=== PATIENT | female | born 1940 | race African-American/Black ===

== ENCOUNTER 2016-09-09 08:20 | Inpatient (IN) | payer MEDICARE, MEDICAID ==
[2016-09-09] MEDS ORDERED: Albuterol/Ipratropium Neb 3 ML AERS HHN ONE ×2 (08:30→08:33)
--- NOTE | 2016-09-09 08:31 | ED Physician Chart ---
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 Has associated audible wheezing and use of accessory breathing muscles. History is limited as patient has underlying intellectual disability History provided by EMS and EMS run sheet Allergies:: Allergies Allergy/AdvReac Type Severity Reaction Status Date / Time No Known Allergies Allergy Verified 05/28/16 21:30 Historian:: Patient, EMS Review:: Nurse's Note Reviewed, EMS run form Reviewed, Transfer documents Reviewed Review of Systems - Review of Systems Other: Complete system review otherwise unremarkable except as noted in history of present illness. 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 In moderate respiratory distress HEAD: Head is normocephalic and atraumatic EYES: EOMI. PERRL. No scleral icterus. No conjunctival injection ENT: Moist mucous membranes. NECK: Supple. No masses. Full range of motion RESPIRATORY: Tachypneic with accessory intercostal muscle use. Coarse breath sounds bilaterally with bilateral wheezing. CV: Regular rate and rhythm. No murmurs, rubs, or gallops ABDOMEN: Soft, non-distended, non-tender. No guarding. No rebound. No masses. EXTREMITIES: No deformity. No cyanosis. No edema. SKIN: Warm and dry. No obvious rashes. NEUROLOGIC: Alert and oriented. Face is symmetric. Speech is normal. Moves all extremities equally. Motor and sensory distally intact. Labs/Radiology/EKG Results - Lab Results Results: Lab Results 09/09/16 09/09/16 09/09/16 Range/Units 08:30 08:30 08:30 WBC 11.6 H (4.8-10.8) Th/cmm RBC 5.02 (3.80-5.20) Mil/cmm Hgb 14.2 (11.7-16.1) gm/dL Hct 42.9 (35.0-45.0) % MCV 85.6 (81-100) fl MCH 28.3 (27.0-31.0) pg MCHC Differential 33.1 (28.0-36.0) pg RDW 13.2 (11.5-20.0) % Plt Count 364 (150-400) Th/cmm MPV 7.3 fl Neutrophils % 82.6 H (40.0-80.0) % Lymphocytes % 9.5 L (20.0-50.0) % Monocytes % 6.6 (2.0-10.0) % Eosinophils % 1.3 (0.0-5.0) % Basophils % 0.0 (0.0-2.0) % Specimen Source Sample Site pH (7.35-7.45) pCO2 (35.0-45.0) mmHg pO2 (80.0-100.0) mmHg HCO3 (20.0-26.0) mEq/L Base Excess (-3.0-3.0) mEq/L O2 Saturation (92.0-100.0) % Gm Test Vent Rate Inspired O2 Tidal Volume PEEP Pressure (ins/psv/peep) Critical Value Sodium 134 L (136-145) mEq/L Potassium 3.9 (3.5-5.1) mEq/L Chloride 102 (98-107) mEq/L Carbon Dioxide 28.7 (21.0-31.0) mEq/L Anion Gap 7.2 (7.0-16.0) BUN 13 (7-25) mg/dL Creatinine 0.7 (0.6-1.2) mg/dL Est GFR ( Amer) TNP Est GFR (Non-Af Amer) TNP BUN/Creatinine Ratio 18.6 Glucose 147 H (70-105) mg/dL Whole Bld Lactic Acid 1.69 (0.60-1.99) mmol/L Calcium 9.5 (8.6-10.3) mg/dL Total Bilirubin 0.3 (0.3-1.0) mg/dL AST 29 (13-39) U/L ALT 20 (7-52) U/L Alkaline Phosphatase 129 H (34-104) U/L Troponin I (0.01-0.05) ng/mL B-Natriuretic Peptide (5.0-100.0) pg/mL Total Protein 7.6 (6.0-8.3) gm/dL Albumin 3.9 (3.7-5.3) gm/dL Globulin 3.7 gm/dL Albumin/Globulin Ratio 1.1 (1.0-1.8) Urine Source Urine Color Urine Clarity (CLEAR) Urine pH Ur Specific [place] (1.005-1.030) Urine Protein (NEGATIVE) mg/dL Urine Glucose (UA) (NEGATIVE) mg/dL Urine Ketones (NEGATIVE) mg/dL Urine Blood (NEGATIVE) Urine Nitrate (NEGATIVE) Urine Bilirubin (NEGATIVE) Urine Urobilinogen (0.2 - 1.0) E.U./dL Ur Leukocyte Esterase (NEGATIVE) Urine RBC (0-5) /hpf Urine WBC (0-5) /hpf Ur Epithelial Cells (FEW) /lpf Urine Bacteria (NONE SEEN) /hpf Urine Yeast (NONE SEEN) /hpf 09/09/16 09/09/16 09/09/16 Range/Units 08:30 08:34 09:15 WBC (4.8-10.8) Th/cmm RBC (3.80-5.20) Mil/cmm Hgb (11.7-16.1) gm/dL Hct (35.0-45.0) % MCV (81-100) fl MCH (27.0-31.0) pg MCHC Differential (28.0-36.0) pg RDW (11.5-20.0) % Plt Count (150-400) Th/cmm MPV fl Neutrophils % (40.0-80.0) % Lymphocytes % (20.0-50.0) % Monocytes % (2.0-10.0) % Eosinophils % (0.0-5.0) % Basophils % (0.0-2.0) % Specimen Source Arterial Sample Site Right Radial pH 7.38 (7.35-7.45) pCO2 52.0 H (35.0-45.0) mmHg pO2 192.0 H (80.0-100.0) mmHg HCO3 30.8 H (20.0-26.0) mEq/L Base Excess 4.5 H (-3.0-3.0) mEq/L O2 Saturation 100.0 (92.0-100.0) % Gm Test Positive Vent Rate NA Inspired O2 40 Tidal Volume NA PEEP NA Pressure (ins/psv/peep) NA Critical Value IZHANG Sodium (136-145) mEq/L Potassium (3.5-5.1) mEq/L Chloride (98-107) mEq/L Carbon Dioxide (21.0-31.0) mEq/L Anion Gap (7.0-16.0) BUN (7-25) mg/dL Creatinine (0.6-1.2) mg/dL Est GFR ( Amer) Est GFR (Non-Af Amer) BUN/Creatinine Ratio Glucose (70-105) mg/dL Whole Bld Lactic Acid (0.60-1.99) mmol/L Calcium (8.6-10.3) mg/dL Total Bilirubin (0.3-1.0) mg/dL AST (13-39) U/L ALT (7-52) U/L Alkaline Phosphatase (34-104) U/L Troponin I 0.76 H* (0.01-0.05) ng/mL B-Natriuretic Peptide 233.0 H (5.0-100.0) pg/mL Total Protein (6.0-8.3) gm/dL Albumin (3.7-5.3) gm/dL Globulin gm/dL Albumin/Globulin Ratio (1.0-1.8) Urine Source CATH Urine Color YELLOW Urine Clarity SL. CLOUDY (CLEAR) Urine pH 7.5 Ur Specific [place] 1.025 (1.005-1.030) Urine Protein 30 H (NEGATIVE) mg/dL Urine Glucose (UA) NEGATIVE (NEGATIVE) mg/dL Urine Ketones NEGATIVE (NEGATIVE) mg/dL Urine Blood NEGATIVE (NEGATIVE) Urine Nitrate NEGATIVE (NEGATIVE) Urine Bilirubin NEGATIVE (NEGATIVE) Urine Urobilinogen 0.2 (0.2 - 1.0) E.U./dL Ur Leukocyte Esterase TRACE H (NEGATIVE) Urine RBC 0-2 (0-5) /hpf Urine WBC 6-10 H (0-5) /hpf Ur Epithelial Cells MODERATE (FEW) /lpf Urine Bacteria OCCASIONAL (NONE SEEN) /hpf Urine Yeast FEW H (NONE SEEN) /hpf - Radiology Results Results: Single AP VIEW Portable Chest X-ray was interpreted independently and contemporaneously by Josh Urena MD: No cardiomegaly Normal mediastinum Right-sided pleural effusion with underlying infiltrates No pneumothorax No soft tissue or bony abnormalities - EKG Interpretations Comments:: 12-lead EKG Interpretation by Josh Urena MD: Sinus tachycardia with multiple PACs with ventricular rate of 101 beats per minute Normal axis Normal intervals No acute ST or T wave changes. No obvious STEMI Assessment - Assessment General Assessment: Critical Care Time: 30 minutes Treatments/Evaluations: Close monitoring and treatment of unstable vital signs, cardiorespiratory, and neurologic status, while maintaining tight balance of fluid, respiratory, and cardiac interventions. This time includes discussing the case with the patient and the patient's family. This time does not include all procedures stated elsewhere in this record. This time also includes reviewing old records, labs and radiological studies. This time includes examining and re-examining the patient. Additionally, this time also includes arranging care with admitting and consulting physicians. Excludes all billable procedures: Yes This condition life threatening/high prob of deterioration: Yes ED Septic Shock - . Is Septic Shock (SBP<90, OR Lactate>4 mmol\L) present?: No Reassessment (Disposition) - Reassessment Reassessment:: 36-year-old female underlying CHF round and respiratory distress. Received DuoNeb and Solu-Medrol. Patient stabilized here in the ER. Chest x-ray indicates right pleural effusion and underlying infection. Troponins are also elevated however this is most likely the CHF and some demand ischemia from his tachycardia. Received IV antibiotics. Discussed case with Dr. Foster who will admit the patient for further workup and treatment. Reassessment Condition:: Improved - Diagnosis Diagnosis:: Respiratory distress Pneumonia, right lower lobe CHF exacerbation Hypertension - Patient Disposition Discharge/Transfer:: Acute Care w/in this hosp Admitted to:: Telemetry Admitting Medical Physician:: Jitendra Foster Time:: 09:54 Condition at Disposition:: Stable ED Discharge Plan - Patient Disposition Admit/Discharge/Transfer: Acute Care w/in this hosp
[2016-09-09] MEDS ORDERED: Sodium Chloride 0.9% 1,000 ML IV ONE (08:38)
[2016-09-09] MEDS ORDERED: Piperacillin Sodium/Tazobact 3.375 gm Vial IV ONE (08:48)
[2016-09-09 08:51] LABS: % EOSINOPHILS 1.3 % (0.0-5.0); % LYMPHOCYTES 9.5 % (20.0-50.0); % MONOCYTES 6.6 % (2.0-10.0); % NEUTROPHILS 82.6 % (40.0-80.0); HEMATOCRIT 42.9 % (35.0-45.0); HEMOGLOBIN 14.2 gm/dL (11.7-16.1); MEAN CELL VOLUME 85.6 fl (81-100); MEAN CORPUSCULAR HEMOGLOBIN 28.3 pg (27.0-31.0); MEAN CORPUSCULAR HGB CONC 33.1 pg (28.0-36.0); MEAN PLATELET VOLUME 7.3 fl; NEUTROPHILE ABSOLUTE 9.5 Th/cmm (1.8-8.0); PLATELET COUNT 364 Th/cmm (150-400); RED BLOOD COUNT 5.02 Mil/cmm (3.80-5.20); RED CELL DISTRIBUTION WIDTH 13.2 % (11.5-20.0); WHITE BLOOD COUNT 11.6 Th/cmm (4.8-10.8)
[2016-09-09 08:58] LABS: ABG SOURCE Arterial; ALLEN TEST Positive; BE(B) 4.5 mEq/L (-3.0-3.0); FIO2 40; HCO3 30.8 mEq/L (20.0-26.0); pH 7.38 (7.35-7.45)
[2016-09-09 09:07] LABS: ALB/GLOB RATIO 1.1 (1.0-1.8); ALKALINE PHOSPHATASE 129 U/L (34-104); ANION GAP 7.2 (7.0-16.0); BILIRUBIN,TOTAL 0.3 mg/dL (0.3-1.0); BUN - UREA NITROGEN 13 mg/dL (7-25); BUN/CREATININE RATIO 18.6; CALCIUM SERUM 9.5 mg/dL (8.6-10.3); CARBON DIOXIDE 28.7 mEq/L (21.0-31.0); CHLORIDE 102 mEq/L (98-107); CREATININE - SERUM 0.7 mg/dL (0.6-1.2); GLUCOSE 147 mg/dL (70-105); POTASSIUM SERUM 3.9 mEq/L (3.5-5.1); SGOT 29 U/L (13-39); SGPT/ALT 20 U/L (7-52); SODIUM SERUM 134 mEq/L (136-145)
[2016-09-09 09:25] LABS: TROP I 0.76 ng/mL (0.01-0.05)
[2016-09-09 09:38] LABS: URINE COLOR YELLOW
[2016-09-09 09:39] LABS: URINE BILIRUBIN NEGATIVE (NEGATIVE); URINE BLOOD NEGATIVE (NEGATIVE); URINE GLUCOSE (UA) NEGATIVE (NEGATIVE); URINE KETONE NEGATIVE (NEGATIVE); URINE PH 7.5; URINE PROTEIN 30 mg/dL (NEGATIVE); URINE UROBILINOGEN 0.2 E.U./dL (0.2 - 1.0)
[2016-09-09 09:47] LABS: URINE BACTERIA OCCASIONAL /hpf (NONE SEEN); URINE EPITHELIAL CELLS MODERATE /lpf (FEW); URINE RBC 0-2 /hpf (0-5)
[2016-09-09] MEDS ORDERED: Magnesium Hydroxide (MOM) 30 mL UDC PO PRN (10:25)
[2016-09-09] MEDS ORDERED: Ipratropium Neb 0.5 mg/2.5 mL UD HHN PRN (10:25)
[2016-09-09] MEDS ORDERED: Fleet Enema 135 mL RC PRN (10:25)
[2016-09-09] MEDS ORDERED: Menthol/Zinc Oxide Oint 113gm Tube TP PRN (10:25)
[2016-09-09] MEDS ORDERED: Non-Formulary Item 1 EA (Oxybenzone/Padimate O [Sunscreen Spf8 Lotion] 120 ML) TP PRN (10:25)
[2016-09-09] MEDS ORDERED: Maalox 30 mL Cup PO PRN (10:25)
[2016-09-09] MEDS ORDERED: Albuterol Nebulizer 2.5mg/3mL HHN PRN (10:25)
[2016-09-09] MEDS ORDERED: guaiFENesin 200 MG/10 ML UDC PO PRN ×2 (10:25→12:25)
--- NOTE | 2016-09-09 11:15 | Diagnostic Imaging Report ---
Portable chest x-ray HISTORY: Shortness of breath There is a very poor inspiration. This results in obscuration of the heart margins. No definite focal pulmonary processes are seen. IMPRESSION: 1. Limited exam due to very poor inspiration 2. Allowing for a poor inspiration, no definite acute focal processes are seen.
[2016-09-09] MEDS: Cefepime 1 GM in Sodium Chloride 0.9% 50 ML IV SCH ×2 (11:47→21:06)
--- NOTE | 2016-09-09 12:54 | Internal Medicine Prog Note ---
Internal Medicine Subjective - Subjective Service Date: 09/09/16 ([facility] [id number] ) Internal Medicine Objective - Results Result Diagrams: 09/09/16 08:30 09/09/16 08:30 Recent Labs: Laboratory Last Values WBC 11.6 Th/cmm (4.8-10.8) H 09/09/16 08:30 RBC 5.02 Mil/cmm (3.80-5.20) 09/09/16 08:30 Hgb 14.2 gm/dL (11.7-16.1) 09/09/16 08:30 Hct 42.9 % (35.0-45.0) 09/09/16 08:30 MCV 85.6 fl (81-100) 09/09/16 08:30 MCH 28.3 pg (27.0-31.0) 09/09/16 08:30 MCHC Differential 33.1 pg (28.0-36.0) 09/09/16 08:30 RDW 13.2 % (11.5-20.0) 09/09/16 08:30 Plt Count 364 Th/cmm (150-400) 09/09/16 08:30 MPV 7.3 fl 09/09/16 08:30 Neutrophils % 82.6 % (40.0-80.0) H 09/09/16 08:30 Lymphocytes % 9.5 % (20.0-50.0) L 09/09/16 08:30 Monocytes % 6.6 % (2.0-10.0) 09/09/16 08:30 Eosinophils % 1.3 % (0.0-5.0) 09/09/16 08:30 Basophils % 0.0 % (0.0-2.0) 09/09/16 08:30 Specimen Source Arterial 09/09/16 08:34 Sample Site Right Radial 09/09/16 08:34 pH 7.38 (7.35-7.45) 09/09/16 08:34 pCO2 52.0 mmHg (35.0-45.0) H 09/09/16 08:34 pO2 192.0 mmHg (80.0-100.0) H 09/09/16 08:34 HCO3 30.8 mEq/L (20.0-26.0) H 09/09/16 08:34 Base Excess 4.5 mEq/L (-3.0-3.0) H 09/09/16 08:34 O2 Saturation 100.0 % (92.0-100.0) 09/09/16 08:34 Gm Test Positive 09/09/16 08:34 Vent Rate NA 09/09/16 08:34 Inspired O2 40 09/09/16 08:34 Tidal Volume NA 09/09/16 08:34 PEEP NA 09/09/16 08:34 Pressure (ins/psv/peep) NA 09/09/16 08:34 Critical Value IZHANG 09/09/16 08:34 Sodium 134 mEq/L (136-145) L 09/09/16 08:30 Potassium 3.9 mEq/L (3.5-5.1) 09/09/16 08:30 Chloride 102 mEq/L (98-107) 09/09/16 08:30 Carbon Dioxide 28.7 mEq/L (21.0-31.0) 09/09/16 08:30 Anion Gap 7.2 (7.0-16.0) 09/09/16 08:30 BUN 13 mg/dL (7-25) 09/09/16 08:30 Creatinine 0.7 mg/dL (0.6-1.2) 09/09/16 08:30 Est GFR ( Amer) TNP 09/09/16 08:30 Est GFR (Non-Af Amer) TNP 09/09/16 08:30 BUN/Creatinine Ratio 18.6 09/09/16 08:30 Glucose 147 mg/dL (70-105) H 09/09/16 08:30 Whole Bld Lactic Acid 1.69 mmol/L (0.60-1.99) 09/09/16 08:30 Calcium 9.5 mg/dL (8.6-10.3) 09/09/16 08:30 Total Bilirubin 0.3 mg/dL (0.3-1.0) 09/09/16 08:30 AST 29 U/L (13-39) 09/09/16 08:30 ALT 20 U/L (7-52) 09/09/16 08:30 Alkaline Phosphatase 129 U/L (34-104) H 09/09/16 08:30 Troponin I 0.76 ng/mL (0.01-0.05) H* 09/09/16 08:30 B-Natriuretic Peptide 233.0 pg/mL (5.0-100.0) H 09/09/16 08:30 Total Protein 7.6 gm/dL (6.0-8.3) 09/09/16 08:30 Albumin 3.9 gm/dL (3.7-5.3) 09/09/16 08:30 Globulin 3.7 gm/dL 09/09/16 08:30 Albumin/Globulin Ratio 1.1 (1.0-1.8) 09/09/16 08:30 Urine Source CATH 09/09/16 09:15 Urine Color YELLOW 09/09/16 09:15 Urine Clarity SL. CLOUDY (CLEAR) 09/09/16 09:15 Urine pH 7.5 09/09/16 09:15 Ur Specific [place] 1.025 (1.005-1.030) 09/09/16 09:15 Urine Protein 30 mg/dL (NEGATIVE) H 09/09/16 09:15 Urine Glucose (UA) NEGATIVE mg/dL (NEGATIVE) 09/09/16 09:15 Urine Ketones NEGATIVE mg/dL (NEGATIVE) 09/09/16 09:15 Urine Blood NEGATIVE (NEGATIVE) 09/09/16 09:15 Urine Nitrate NEGATIVE (NEGATIVE) 09/09/16 09:15 Urine Bilirubin NEGATIVE (NEGATIVE) 09/09/16 09:15 Urine Urobilinogen 0.2 E.U./dL (0.2 - 1.0) 09/09/16 09:15 Ur Leukocyte Esterase TRACE (NEGATIVE) H 09/09/16 09:15 Urine RBC 0-2 /hpf (0-5) 09/09/16 09:15 Urine WBC 6-10 /hpf (0-5) H 09/09/16 09:15 Ur Epithelial Cells MODERATE /lpf (FEW) 09/09/16 09:15 Urine Bacteria OCCASIONAL /hpf (NONE SEEN) 09/09/16 09:15 Urine Yeast FEW /hpf (NONE SEEN) H 09/09/16 09:15 - Physical Exam Vitals and I&O: Vital Signs Temp 97.8 F 09/09/16 11:08 Pulse 83 09/09/16 11:08 Resp 17 09/09/16 11:52 BP 112/75 09/09/16 11:08 Pulse Ox 100 09/09/16 11:08 Active Medications: Current Medications Acetaminophen (Tylenol) 650 mg PO Q4HR PRN PRN Reason: PAIN OR FEVER >100.1 R Stop: 11/08/16 10:24 Acetaminophen (Tylenol) 650 mg PO Q4HR PRN PRN Reason: Pain or Fever >101 Stop: 11/08/16 12:24 Al Hydrox/Mg Hydrox/Simethicone (Maalox) 30 ml PO Q6H PRN PRN Reason: GI DISTRESS Stop: 11/08/16 10:24 Albuterol Sulfate (Albuterol 2.5mg/3ml Neb Ud) 2.5 mg HHN QIDRT [facility] Stop: 11/08/16 14:59 Alendronate Sodium (Fosamax) 70 mg PO QSAT@0630 [facility] Stop: 11/13/16 06:29 Amlodipine Besylate (Norvasc) 10 mg PO QAM [facility] Stop: 11/09/16 08:59 Aspirin (Aspirin Chewable) 81 mg PO DAILY [facility] Stop: 11/09/16 08:59 Atenolol (Tenormin) 50 mg PO BID [facility] Stop: 11/08/16 16:59 Bisacodyl (Dulcolax 10 Mg Supp) 10 mg RC DAILY PRN PRN Reason: if MOM not effective Stop: 11/08/16 10:24 Calamine/Phenol (Calmoseptine) 1 appl TP Q4H PRN PRN Reason: INCONTINENCE Stop: 11/08/16 10:24 Calcium/Vitamin D (Oscal W/Vitamin D) 1 tab PO BID [facility] Stop: 11/08/16 16:59 Carbamazepine (Tegretol) 200 mg PO BID EULALIA PRN Reason: Protocol Stop: 11/08/16 16:59 Cholecalciferol (Vitamin D3) 1,000 iu PO DAILY [facility] Stop: 11/09/16 08:59 Enalapril Maleate (Vasotec) 20 mg PO BID [facility] Stop: 11/08/16 16:59 Furosemide (Lasix) 40 mg IVP DAILY [facility] Stop: 11/09/16 08:59 Guaifenesin (Robitussin) 200 mg PO Q4HR PRN PRN Reason: Cough or Congestion Stop: 11/08/16 10:24 Guaifenesin (Robitussin) 100 mg PO Q4H PRN PRN Reason: Cough or Congestion Stop: 11/08/16 12:24 Cefepime HCl 1 gm/ Sodium (Chloride) 50 mls @ 100 mls/hr IV Q12HR [facility] Stop: 11/08/16 10:59 Last Admin: 09/09/16 11:47 Dose: 100 mls/hr Ipratropium [place] (Atrovent Neb 0.5mg/2.5ml) 0.5 mg HHN QIDRT [facility] Stop: 11/08/16 14:59 Magnesium Hydroxide (Milk Of Magnesia) 30 ml PO DAILY PRN PRN Reason: CONSTIPATION Stop: 11/08/16 10:24 Meclizine HCl (Antivert) 25 mg PO DAILY PRN PRN Reason: Nausea / Vomiting Stop: 11/08/16 10:24 Miscellaneous (Lactase [Lactase]) 3,000 unit PO BIDAC [facility] Stop: 11/08/16 16:29 Miscellaneous (Oxybenzone/Padimate O [Sunscreen Spf8 Lotion]) 120 ml TP PRN PRN PRN Reason: SUN EXPOSURE Ondansetron HCl (Zofran) 4 mg IV Q8H PRN PRN Reason: Nausea / Vomiting Stop: 11/08/16 12:24 Potassium Chloride (Klor-Con) 20 meq PO DAILY [facility] Stop: 11/09/16 08:59 Sodium Chloride (Saline Flush) 10 ml IV QSHIFT [facility] Stop: 11/08/16 19:59 Sodium Phosphate (Fleet Enema) 135 ml RC DAILY PRN PRN Reason: if dulcolax not effective Stop: 11/08/16 10:24 - Procedures Procedures: Procedures Procedure Code Date D & C NEC 69.09 01/24/98 DILATION AND CURETTAGE 36664 01/24/98 Internal Medicine Assmt/Plan - Assessment Assessment: PNEUMONIA CONGESTIVE HEART FAILURE EXACERBATION HTN DEMENTIA HYPONATREMIA
--- NOTE | 2016-09-09 13:39 | History & Physical ---
CHIEF COMPLAINT: Shortness of breath. HISTORY OF PRESENT ILLNESS: This is a 76-year-old female who is a resident of [facility] who is brought here to [facility] for 1-day history of shortness of breath associated with respiratory distress and audible wheezes. The patient did not have any fevers or any chills at the half-way. The patient is now admitted to the Med/Surg unit to be evaluated. PAST MEDICAL HISTORY: Hypertension, CHF, CVA, TIA, and dementia, seizures. FAMILY HISTORY: Noncontributory. SOCIAL HISTORY: The patient is a resident of [facility], requiring 24-hour nursing care. PAST SURGICAL HISTORY: Unknown. MEDICATIONS: Albuterol, Atrovent, aspirin, Tenormin, Oscal, vitamin D3, Vasotec, Lasix, lactase, potassium chloride, Norvasc, and Tegretol. REVIEW OF SYSTEMS: Unable to obtain, patient is not interactive. PHYSICAL EXAMINATION: GENERAL: The patient is an elderly female, awake, not interactive, appears chronically ill. VITAL SIGNS: Temperature 97.8, heart rate 83, blood pressure 112/75, respirations 18, O2 sat 100%. HEENT: Head; normocephalic, atraumatic. NECK: Supple. No mass. LUNGS: Scattered rhonchi and wheezes bilaterally. CARDIOVASCULAR: Regular rhythm. ABDOMEN: Soft, nontender, nondistended. LABORATORY DATA: WBC 11.6, H and H 14.2 and 42.9, platelets 364. Per ABG, pH 7.38, CO2 52.0, O2 192.0, HCO ____. Sodium 134, potassium 3.9, chloride 102, carbon dioxide 28.7, BUN 13, creatinine 0.7. Troponin 0.76. BNP of 233. DIAGNOSTICS: The patient had a chest x-ray done and the impression is, no definite acute pulmonary processes. ASSESSMENT: 1. Congestive heart failure exacerbation. 2. Possible pneumonia. 3. Elevated troponin. 4. Hyponatremia. 5. Hypertension and dementia. PLAN: The patient to be admitted to the telemetry unit. The patient will have a consultation with Dr. Robbin Henson. Put the patient on IV antibiotics of Maxipime 1 g IV q. 12. We will monitor the patient's electrolytes level. Seizure precautions will be initiated. We will continue to monitor the patient. [facility]# [id number]
[2016-09-09] MEDS: Ipratropium Neb 0.5 mg/2.5 mL UD HHN SCH ×2 (15:31→19:44)
[2016-09-09] MEDS: Albuterol Nebulizer 2.5mg/3mL HHN SCH ×2 (15:31→19:43)
[2016-09-09] MEDS: Calcium Carb/Vit D 500 mg/200 U Tab PO SCH (16:17)
[2016-09-09] MEDS ORDERED: LACTASE 3000 UNIT PO SCH (16:30)
--- NOTE | 2016-09-09 20:43 | Admit Criteria Form ---
Admit Criteria Forms - Admit Criteria Diagnosis: PULMONARY DISEASE GRG Clinical Indications for Admission to Inpatient Care ( Place 'X' for any and all applicable criteria): Hospital admission is needed for appropriate care of the patient because of ANY ONE of the following(1): [ ]I. Impending or actual respiratory arrest ( Use Respiratory Failure Criteria for severe respiratory disease and long-term mechanical ventilation patients) (4) [ ]II. Severe airflow or ventilation abnormalities (not responsive to emergency and observation care treatment as appropriate) as indicated by ANY ONE of the following(5)(6)(7)(8) : [ ]a) PCO2 > 42 mm Hg (5.6 kPa) and pH < 7.35 (new) [ ]b) Documented PCO2 increase > 5 mm Hg (0.7 kPa) from disease baseline [ ]c) Airflow measurements[A] < 60% of previous best or predicted ( e.g., PEF <300 L/minute) despite intensive emergent treatment[B] [ ]d) Required respiratory treatments that are performable only in acute inpatient setting [X]III. Severe respiratory findings (not responsive to emergency and observation care treatment as appropriate) including ANY ONE of the following(5)(8)(9): [X]a) Respiratory distress as indicated by ALL of the following(5)(10): [X]i) Patient with ANY ONE of the following: [X]1) Dyspnea (difficulty breathing) [ ]2) Abnormal breathing pattern (eg, chest retractions) [ ]3) Tachypnea [ ]4) Other evidence of difficulty breathing [X]ii) Evidence of respiratory compromise indicated by ANY ONE of the following: [ ]1) Hypoxemia [ ]2) Altered mental status [X]3) Other evidence of respiratory compromise (eg, pulmonary edema on chest x-ray) [ ]b) Stridor [ ]c) Gross hemoptysis(11) [ ]d) Acute cyanosis [ ]IV. High-risk pulmonary infection as indicated by ANY ONE of the following( 19)(20)(21)(22): [ ]a) Temperature less than 95 degrees F(35 degrees C) or greater than 103.1 degrees F(39.5 degrees C) [ ]b) Hemodynamic instability that remains after emergency or observation level care (as appropriate) [ ]c) Immunocompromised patient (eg, AIDS, post transplant, neutropenic) [ ]d) History of severe COPD [ ]e) History of severely symptomatic congestive heart failure [ ]f) Other high-risk comorbidity (eg, poorly controlled diabetes, cirrhosis, chronic renal insufficiency) [ ]g) Hypoxemia (new) [ ]h) Outpatient, observation, or recovery facility therapy has failed, is not appropriate, or is not feasible [ ]V. Severe atelectasis or lung collapse(15)(16) [ ]. Tuberculosis requiring inpatient treatment as indicated by ANY ONE of the following(17)(18): [ ]a) New positive acid-fast bacilli sputum smear [ ]b) Positive acid-fast bacilli smear (under current treatment), with ANY ONE of the following: [ ]i) Unexposed household contacts [ ]ii) Infants or immunosuppressed household contacts [ ]iii) Patient unable or unwilling to avoid exposing others [ ]iv) Severe immunocompromised patient (eg, AIDS, post transplant, neutropenic) [ ]VII. Empyema or lung abscess(13)(14) [ ]VIII. Severe pulmonary arterial hypertension or pulmonary vascular disease requiring inpatient care indicated by ANY ONE of the following(24)(25): [ ]a) Initiation or change of vasodilators (IV, subcutaneous, or inhaled) or other vasoactive medications needed [ ]b) IV anticoagulation needed (eg, immediate anticoagulation necessary, alternatives not appropriate) [ ]c) Arterial or pulmonary artery catheter monitoring needed due to infusion or other treatment [ ]IX. Chronic lung disease with severe deterioration (not responsive to emergency and observation care treatment as appropriate) as indicated by ANY ONE of the following (6)(12): [ ]a) SaO2 5% below baseline in patient with chronic hypoxemia [ ]b) New requirement for supplemental oxygen to keep SaO2 at baseline or acceptable level [ ]c) Required supplemental oxygen performable only in acute inpatient setting [ ]d) Severe airflow or ventilation abnormalities [ ]e) Rapid rate of exacerbation onset [ ]f) Previously mobile patient unable to walk between rooms [ ]g) Inability to eat or sleep due to dyspnea [ ]h) Altered mental status [ ]X. Cystic fibrosis with severe deterioration as indicated by ANY ONE of the following(26)(27): [ ]a) Severe exacerbation that does not respond to intensified home therapy [ ]b) Pneumonia [ ]c) Hemoptysis [ ]d) Atelectasis [ ]e) Pneumothorax [ ]f) Respiratory failure [ ]g) Severe exacerbation with patient unable to perform prescribed treatments at home [ ]XI. Severe right heart failure as indicated by ANY ONE of the following(24) (25): [ ]a) Increasing organ failure (eg, liver congestion with significant and worsening or new elevation of transaminases) [ ]b) Anasarca [ ]c) Angina that requires inpatient care (eg, not treatable in emergency or observation level of care) [ ]d) Respiratory distress [ ]e) Syncope [ ]f) SBP < 90 mm Hg (new) [ ]XII. Injury requiring inpatient care (medical) as indicated by ANY ONE of the following(28): [ ]a) Significant inhalation injury (eg, smoke inhalation, other toxic inhalation) (29)(30)(31) [ ]b) Airway obstruction that remains or is unstable after emergency or observation level care(32) [ ]c) Severe pain requiring acute inpatient management [ ]d) Lung contusion [ ]e) Bronchial tree injury [ ]f) Air or fat emboli(33) [ ]g) Other injury not treatable in emergency or observation level care (eg, hemothorax) (34) [ ]XIII. Pulmonary hemorrhage or significant hemoptysis(11)(35)(36) [ ]XIV. Inpatient palliative care needed[C](37)(38)(39)(40) [ ]XV. Complications of lung transplant (eg, rejection, failure, respiratory infection) (23) [ ]XVI. Pulmonary Disease and ANY ONE of the following: [ ]a) General Admission Criteria [ ]b) Pediatric General Admission Criteria The [facility] content [facility] by [facility] has been revised. The portions of the content which have been revised are identified through the use of italic text or in bold, and [facility] has neither reviewed nor approved the modified material. All other unmodified content is copyright [facility]. Please see references footnoted in the original [facility] edition 2016 Admit Criteria Met?: Yes
--- NOTE | 2016-09-09 23:08 | Consultation ---
The patient of Dr. Foster. HISTORY AND PHYSICAL: This is a 76-year-old female patient who is a resident at [facility]. The patient was brought to [facility] with increasing shortness of breath and wheezing. The patient also has a slightly elevated BNP level. PAST MEDICAL HISTORY: Congestive heart failure, CVA, TIA, dementia, seizure disorder, hyponatremia, hypertension, and cardiomyopathy. FAMILY HISTORY: Unremarkable. SOCIAL HISTORY: No history of smoking or alcohol abuse. ALLERGIES: No known allergies. PHYSICAL EXAMINATION: VITAL SIGNS: Blood pressure 130/80, pulse 88, and respirations 28. HEAD: Normocephalic. No lumps or bumps. EYES: Pupils are equal and reactive to light. Fundi show AV nicking, sclerae white, and conjunctivae pink. NECK: Carotid 2+. Normal upstroke. JVD 10 cm above the sternal angle. Thyroid not palpable. Lymph nodes not palpable. CHEST: Shows increased AP diameter. No kyphosis or scoliosis. LUNGS: Bilateral wheezing, rhonchi, and prolonged expiration. HEART: PMI fifth intercostal space with lateral to midclavicular line. S1, S2, S3, S4, systolic murmur, grade 2/6 lower left sternal border without radiation. ABDOMEN: Soft. Liver and spleen not palpable. No organomegaly. Bowel sounds active. NEUROLOGIC: No focal neurological deficit. EXTREMITIES: Peripheral pulses 1+. No pedal edema. CLINICAL IMPRESSION: Congestive heart failure, systolic dysfunction, acute cardiomyopathy, pneumonia, hyponatremia, hypertension, dementia, transient ischemic attack, cerebrovascular accident with late-effect seizure disorder. PLAN: Admit the patient. We will get echocardiogram to evaluate left ventricular function. Continue medication to control congestive heart failure and IV antibiotics. JOB# [id number]
[2016-09-10 08:33] LABS: HEMATOCRIT 41.2 % (35.0-45.0); HEMOGLOBIN 13.4 gm/dL (11.7-16.1); MEAN CELL VOLUME 85.5 fl (81-100); MEAN CORPUSCULAR HEMOGLOBIN 27.7 pg (27.0-31.0); MEAN CORPUSCULAR HGB CONC 32.4 pg (28.0-36.0); MEAN PLATELET VOLUME 7.8 fl; PLATELET COUNT 359 Th/cmm (150-400); RED BLOOD COUNT 4.82 Mil/cmm (3.80-5.20)
[2016-09-10 08:34] LABS: WHITE BLOOD COUNT 5.9 Th/cmm (4.8-10.8)
[2016-09-10] MEDS: Calcium Carb/Vit D 500 mg/200 U Tab PO SCH ×2 (09:09→16:36)
[2016-09-10] MEDS: Potassium Chloride 20 mEq ER Tab PO SCH (09:09)
[2016-09-10] MEDS: Aspirin 81mg Chewable Tab PO SCH (09:10)
[2016-09-10] MEDS: Multivitamin w/ Minerals Tab PO SCH (09:10)
[2016-09-10 09:27] LABS: BAND NEUTROPHILE 3 % (0-10); NEUTROPHILS 60 % (40-80); TOTAL CELLS COUNTED 100
[2016-09-10 09:28] LABS: PLATELET ESTIMATE ADEQUATE (NORMAL); PLATELET MORPHOLOGY NORMAL (NORMAL)
[2016-09-10] MEDS: Cefepime 1 GM in Sodium Chloride 0.9% 50 ML IV SCH ×2 (10:19→21:00)
[2016-09-10] MEDS: Enoxaparin 80 mg/0.8 mL 0.8mL Syr SUBQ SCH ×2 (11:01→22:35)
[2016-09-10 11:05] LABS: ANION GAP 12.1 (7.0-16.0); BUN - UREA NITROGEN 19 mg/dL (7-25); BUN/CREATININE RATIO 31.7; CALCIUM SERUM 9.6 mg/dL (8.6-10.3); CARBON DIOXIDE 30.3 mEq/L (21.0-31.0); CHLORIDE 101 mEq/L (98-107); CREATININE - SERUM 0.6 mg/dL (0.6-1.2); GLUCOSE 142 mg/dL (70-105); POTASSIUM SERUM 3.4 mEq/L (3.5-5.1); SODIUM SERUM 140 mEq/L (136-145)
[2016-09-10] MEDS: Albuterol Nebulizer 2.5mg/3mL HHN SCH ×3 (11:36→18:56)
[2016-09-10] MEDS: Ipratropium Neb 0.5 mg/2.5 mL UD HHN SCH ×3 (11:36→18:56)
--- NOTE | 2016-09-10 11:38 | Internal Medicine Prog Note ---
Internal Medicine Subjective - Subjective Service Date: 09/10/16 (AWAKE, ALERT, AFEBRILE, CHEST CONGESTION IMPROVING. ) Patient seen and examined:: with staff Patient is:: awake Patient Complaints of:: congestion Internal Medicine Objective - Results Result Diagrams: 09/10/16 07:20 09/10/16 10:00 Recent Labs: Laboratory Last Values WBC 5.9 Th/cmm (4.8-10.8) D 09/10/16 07:20 RBC 4.82 Mil/cmm (3.80-5.20) 09/10/16 07:20 Hgb 13.4 gm/dL (11.7-16.1) 09/10/16 07:20 Hct 41.2 % (35.0-45.0) 09/10/16 07:20 MCV 85.5 fl (81-100) 09/10/16 07:20 MCH 27.7 pg (27.0-31.0) 09/10/16 07:20 MCHC Differential 32.4 pg (28.0-36.0) 09/10/16 07:20 RDW 13.0 % (11.5-20.0) 09/10/16 07:20 Plt Count 359 Th/cmm (150-400) 09/10/16 07:20 MPV 7.8 fl 09/10/16 07:20 Neutrophils % 82.6 % (40.0-80.0) H 09/09/16 08:30 Band Neutrophils % 3 % (0-10) 09/10/16 07:20 Lymphocytes % 9.5 % (20.0-50.0) L 09/09/16 08:30 Monocytes % 6.6 % (2.0-10.0) 09/09/16 08:30 Eosinophils % 1.3 % (0.0-5.0) 09/09/16 08:30 Basophils % 0.0 % (0.0-2.0) 09/09/16 08:30 Neutrophils (Manual) 60 % (40-80) 09/10/16 07:20 Lymphocytes 21 % (20-50) 09/10/16 07:20 Monocytes 16 % (2-10) H 09/10/16 07:20 Platelet Estimate ADEQUATE (NORMAL) 09/10/16 07:20 Platelet Morphology NORMAL (NORMAL) 09/10/16 07:20 RBC Morph Micro Appear NORMAL (NORMAL) 09/10/16 07:20 Specimen Source Arterial 09/09/16 08:34 Sample Site Right Radial 09/09/16 08:34 pH 7.38 (7.35-7.45) 09/09/16 08:34 pCO2 52.0 mmHg (35.0-45.0) H 09/09/16 08:34 pO2 192.0 mmHg (80.0-100.0) H 09/09/16 08:34 HCO3 30.8 mEq/L (20.0-26.0) H 09/09/16 08:34 Base Excess 4.5 mEq/L (-3.0-3.0) H 09/09/16 08:34 O2 Saturation 100.0 % (92.0-100.0) 09/09/16 08:34 Gm Test Positive 09/09/16 08:34 Vent Rate NA 09/09/16 08:34 Inspired O2 40 09/09/16 08:34 Tidal Volume NA 09/09/16 08:34 PEEP NA 09/09/16 08:34 Pressure (ins/psv/peep) NA 09/09/16 08:34 Critical Value IZHANG 09/09/16 08:34 Sodium 140 mEq/L (136-145) 09/10/16 10:00 Potassium 3.4 mEq/L (3.5-5.1) L 09/10/16 10:00 Chloride 101 mEq/L (98-107) 09/10/16 10:00 Carbon Dioxide 30.3 mEq/L (21.0-31.0) 09/10/16 10:00 Anion Gap 12.1 (7.0-16.0) 09/10/16 10:00 BUN 19 mg/dL (7-25) 09/10/16 10:00 Creatinine 0.6 mg/dL (0.6-1.2) 09/10/16 10:00 Est GFR ( Amer) TNP 09/10/16 10:00 Est GFR (Non-Af Amer) TNP 09/10/16 10:00 BUN/Creatinine Ratio 31.7 09/10/16 10:00 Glucose 142 mg/dL (70-105) H 09/10/16 10:00 Whole Bld Lactic Acid 1.69 mmol/L (0.60-1.99) 09/09/16 08:30 Calcium 9.6 mg/dL (8.6-10.3) 09/10/16 10:00 Total Bilirubin 0.3 mg/dL (0.3-1.0) 09/09/16 08:30 AST 29 U/L (13-39) 09/09/16 08:30 ALT 20 U/L (7-52) 09/09/16 08:30 Alkaline Phosphatase 129 U/L (34-104) H 09/09/16 08:30 Troponin I 2.31 ng/mL (0.01-0.05) H* D 09/10/16 10:00 B-Natriuretic Peptide 233.0 pg/mL (5.0-100.0) H 09/09/16 08:30 Total Protein 7.6 gm/dL (6.0-8.3) 09/09/16 08:30 Albumin 3.9 gm/dL (3.7-5.3) 09/09/16 08:30 Globulin 3.7 gm/dL 09/09/16 08:30 Albumin/Globulin Ratio 1.1 (1.0-1.8) 09/09/16 08:30 Urine Source CATH 09/09/16 09:15 Urine Color YELLOW 09/09/16 09:15 Urine Clarity SL. CLOUDY (CLEAR) 09/09/16 09:15 Urine pH 7.5 09/09/16 09:15 Ur Specific [place] 1.025 (1.005-1.030) 09/09/16 09:15 Urine Protein 30 mg/dL (NEGATIVE) H 09/09/16 09:15 Urine Glucose (UA) NEGATIVE mg/dL (NEGATIVE) 09/09/16 09:15 Urine Ketones NEGATIVE mg/dL (NEGATIVE) 09/09/16 09:15 Urine Blood NEGATIVE (NEGATIVE) 09/09/16 09:15 Urine Nitrate NEGATIVE (NEGATIVE) 09/09/16 09:15 Urine Bilirubin NEGATIVE (NEGATIVE) 09/09/16 09:15 Urine Urobilinogen 0.2 E.U./dL (0.2 - 1.0) 09/09/16 09:15 Ur Leukocyte Esterase TRACE (NEGATIVE) H 09/09/16 09:15 Urine RBC 0-2 /hpf (0-5) 09/09/16 09:15 Urine WBC 6-10 /hpf (0-5) H 09/09/16 09:15 Ur Epithelial Cells MODERATE /lpf (FEW) 09/09/16 09:15 Urine Bacteria OCCASIONAL /hpf (NONE SEEN) 09/09/16 09:15 Urine Yeast FEW /hpf (NONE SEEN) H 09/09/16 09:15 - Physical Exam Vitals and I&O: Vital Signs Temp 97.6 F 09/10/16 04:00 Pulse 98 09/10/16 09:09 Resp 18 09/10/16 08:00 BP 150/94 09/10/16 09:10 Pulse Ox 97 09/10/16 04:00 Intake & Output 09/09/16 09/10/16 09/10/16 18:59 06:59 18:59 Intake Total 50 150 Output Total 500 Balance 50 -350 Intake: Intake, IV Amount 50 50 Cefepime 1 gm In Sodium 50 50 Chloride 0.9% 50 ml @ 100 mls/hr IV Q12HR [facility] Rx#: [id number] Oral 100 Output: Urine 500 Other: # Bowel Movements 0 Active Medications: Current Medications Acetaminophen (Tylenol) 650 mg PO Q4HR PRN PRN Reason: PAIN OR FEVER >100.1 R Stop: 11/08/16 10:24 Acetaminophen (Tylenol) 650 mg PO Q4HR PRN PRN Reason: Pain or Fever >101 Stop: 11/08/16 12:24 Al Hydrox/Mg Hydrox/Simethicone (Maalox) 30 ml PO Q6H PRN PRN Reason: GI DISTRESS Stop: 11/08/16 10:24 Albuterol Sulfate (Albuterol 2.5mg/3ml Neb Ud) 2.5 mg HHN QIDRT [facility] Stop: 11/08/16 14:59 Last Admin: 09/10/16 11:36 Dose: 2.5 mg Alendronate Sodium (Fosamax) 70 mg PO QSAT@0630 [facility] Stop: 11/13/16 06:29 Amlodipine Besylate (Norvasc) 10 mg PO QAM [facility] Stop: 11/09/16 08:59 Last Admin: 09/10/16 09:08 Dose: 10 mg Aspirin (Aspirin Chewable) 81 mg PO DAILY [facility] Stop: 11/09/16 08:59 Last Admin: 09/10/16 09:10 Dose: 81 mg Atenolol (Tenormin) 50 mg PO BID [facility] Stop: 11/08/16 16:59 Last Admin: 09/10/16 09:09 Dose: 50 mg Bisacodyl (Dulcolax 10 Mg Supp) 10 mg RC DAILY PRN PRN Reason: if MOM not effective Stop: 11/08/16 10:24 Calamine/Phenol (Calmoseptine) 1 appl TP Q4H PRN PRN Reason: INCONTINENCE Stop: 11/08/16 10:24 Calcium/Vitamin D (Oscal W/Vitamin D) 1 tab PO BID [facility] Stop: 11/08/16 16:59 Last Admin: 09/10/16 09:09 Dose: 1 tab Carbamazepine (Tegretol) 200 mg PO BID [facility] PRN Reason: Protocol Stop: 11/08/16 16:59 Last Admin: 09/10/16 09:09 Dose: 200 mg Cholecalciferol (Vitamin D3) 1,000 iu PO DAILY [facility] Stop: 11/09/16 08:59 Last Admin: 09/10/16 09:10 Dose: 1,000 iu Enalapril Maleate (Vasotec) 20 mg PO BID [facility] Stop: 11/08/16 16:59 Last Admin: 09/10/16 09:09 Dose: 20 mg Enoxaparin Sodium (Lovenox) 70 mg SUBQ Q12HR [facility] PRN Reason: Protocol Stop: 11/09/16 10:59 Last Admin: 09/10/16 11:01 Dose: 70 mg Furosemide (Lasix) 40 mg IVP DAILY [facility] Stop: 11/09/16 08:59 Last Admin: 09/10/16 09:10 Dose: 40 mg Guaifenesin (Robitussin) 100 mg PO Q4H PRN PRN Reason: Cough or Congestion Stop: 11/08/16 12:24 Cefepime HCl 1 gm/ Sodium (Chloride) 50 mls @ 100 mls/hr IV Q12HR [facility] Stop: 11/08/16 10:59 Last Admin: 09/10/16 10:19 Dose: 100 mls/hr Ipratropium [place] (Atrovent Neb 0.5mg/2.5ml) 0.5 mg HHN QIDRT [facility] Stop: 11/08/16 14:59 Last Admin: 09/10/16 11:36 Dose: 0.5 mg Magnesium Hydroxide (Milk Of Magnesia) 30 ml PO DAILY PRN PRN Reason: CONSTIPATION Stop: 11/08/16 10:24 Meclizine HCl (Antivert) 25 mg PO DAILY PRN PRN Reason: Nausea / Vomiting Stop: 11/08/16 10:24 Methylprednisolone Sodium Succinate (Solu-Medrol) 80 mg IVP Q12HR [facility] Stop: 11/08/16 20:59 Last Admin: 09/10/16 09:10 Dose: 80 mg Miscellaneous (Lactase [Lactase]) 3,000 unit PO BIDAC [facility] Stop: 11/08/16 16:29 Miscellaneous (Oxybenzone/Padimate O [Sunscreen Spf8 Lotion]) 120 ml TP PRN PRN PRN Reason: SUN EXPOSURE Ondansetron HCl (Zofran) 4 mg IV Q8H PRN PRN Reason: Nausea / Vomiting Stop: 11/08/16 12:24 Potassium Chloride (Klor-Con) 20 meq PO DAILY [facility] Stop: 11/09/16 08:59 Last Admin: 09/10/16 09:09 Dose: 20 meq Sodium Chloride (Saline Flush) 10 ml IV QSHIFT [facility] Stop: 11/08/16 19:59 Sodium Phosphate (Fleet Enema) 135 ml RC DAILY PRN PRN Reason: if dulcolax not effective Stop: 11/08/16 10:24 General: alert HEENT: NC/AT, PERRLA, EOMI Neck: Supple Lungs: CTAB Cardiovascular: RRR, Normal S1, Normal S2, without murmur Abdomen: soft non-tender, non-distended, positive bowel sound Neurological: no change - Procedures Procedures: Procedures Procedure Code Date D & C NEC 69.09 01/24/98 DILATION AND CURETTAGE 34817 01/24/98 Internal Medicine Assmt/Plan - Assessment Assessment: PNEUMONIA CONGESTIVE HEART FAILURE EXACERBATION HTN DEMENTIA HYPONATREMIA - Plan Plan: f/u cxr in am continue ivabx inhalation tx/supplemental oxygen cpm
[2016-09-10] MEDS ORDERED: Potassium Chloride 20 mEq ER Tab PO ONE (11:58)
--- NOTE | 2016-09-10 13:36 | Cardiology ---
Patient of Dr. Jitendra Foster. M-MODE ECHOCARDIOGRAM: Mitral valve, anterior leaflet of mitral valve shows decreased excursion, EF velocity. Posterior leaflet of mitral valve shows decreased excursion. Left ventricular posterior wall shows increased thickness, decreased excursion. Interventricular septum shows increased thickness, decreased excursion, ejection fraction 20%. Left atrium normal. Aortic root shows normal dimension, normal excursion of aortic leaflets. CONCLUSION: Cardiomyopathy, ejection fraction 20%, minimal hypertrophy of the left ventricle. 2D ECHO: Long axis view shows enlarged left ventricular cavity with minimal hypertrophy of the left ventricle, ejection fraction 20%. Left atrium normal. Aortic root shows normal dimension, normal excursion of aortic leaflets. Short axis view of mitral valve normal. Short axis view of aortic valve normal. Apical four chamber view shows enlarged left ventricular cavity with decreased ejection fraction. Left atrium, normal. Right ventricular cavity, right atrium normal, no pericardial effusion. CONCLUSION: Hypertrophy of the left ventricle, cardiomyopathy, ejection fraction 20%. Doppler study shows mild mitral regurgitation, tricuspid regurgitation, aortic regurgitation. [facility]# [id number]
[2016-09-11] MEDS: Albuterol Nebulizer 2.5mg/3mL HHN SCH ×5 (05:14→19:00)
[2016-09-11] MEDS: Ipratropium Neb 0.5 mg/2.5 mL UD HHN SCH ×5 (05:14→19:00)
[2016-09-11 08:12] LABS: % BASOPHILS 0.2 % (0.0-2.0); % EOSINOPHILS 0.2 % (0.0-5.0); % MONOCYTES 13.5 % (2.0-10.0); % NEUTROPHILS 77.1 % (40.0-80.0); HEMATOCRIT 41.8 % (35.0-45.0); HEMOGLOBIN 13.5 gm/dL (11.7-16.1); MEAN CELL VOLUME 85.7 fl (81-100); MEAN CORPUSCULAR HEMOGLOBIN 27.8 pg (27.0-31.0); MEAN CORPUSCULAR HGB CONC 32.4 pg (28.0-36.0); MEAN PLATELET VOLUME 7.6 fl; NEUTROPHILE ABSOLUTE 9.7 Th/cmm (1.8-8.0); PLATELET COUNT 396 Th/cmm (150-400); RED BLOOD COUNT 4.87 Mil/cmm (3.80-5.20); RED CELL DISTRIBUTION WIDTH 13.1 % (11.5-20.0)
[2016-09-11 08:21] LABS: BUN - UREA NITROGEN 29 mg/dL (7-25); BUN/CREATININE RATIO 41.4; CALCIUM SERUM 9.1 mg/dL (8.6-10.3); CARBON DIOXIDE 32.1 mEq/L (21.0-31.0); CHLORIDE 105 mEq/L (98-107); CREATININE - SERUM 0.7 mg/dL (0.6-1.2); GLUCOSE 123 mg/dL (70-105); SODIUM SERUM 138 mEq/L (136-145)
[2016-09-11 08:41] LABS: POTASSIUM SERUM 3.1 mEq/L (3.5-5.1)
[2016-09-11 08:44] LABS: WHITE BLOOD COUNT 12.5 Th/cmm (4.8-10.8)
[2016-09-11 08:45] LABS: TROP I 1.19 ng/mL (0.01-0.05)
[2016-09-11] MEDS: Enoxaparin 80 mg/0.8 mL 0.8mL Syr SUBQ SCH ×2 (09:02→20:39)
[2016-09-11] MEDS: Potassium Chloride 20 mEq ER Tab PO SCH ×2 (09:03→16:57)
[2016-09-11] MEDS: Aspirin 81mg Chewable Tab PO SCH (09:03)
[2016-09-11] MEDS: Cefepime 1 GM in Sodium Chloride 0.9% 50 ML IV SCH ×2 (09:03→20:38)
[2016-09-11] MEDS: Multivitamin w/ Minerals Tab PO SCH (09:04)
[2016-09-11] MEDS: Calcium Carb/Vit D 500 mg/200 U Tab PO SCH ×2 (09:05→16:57)
--- NOTE | 2016-09-11 09:11 | Diagnostic Imaging Report ---
CHEST X-RAY: AP view INDICATION: Pneumonia COMPARISON: 09/09/2016 FINDINGS: Suboptimal lung volumes are seen with increased bibasilar lung markings. Heart size cannot be well assessed due to patient's low lung volumes. Degenerative changes of the spine are noted. IMPRESSION: Suboptimal lung volumes with increased bibasilar lung markings favoring atelectasis. Underlying infiltrate is considered less likely.
[2016-09-11] MEDS ORDERED: KCL 20mEq/100mL Premix 20 MEQ/100 ML PIGGYBACK IV ONE (11:00)
--- NOTE | 2016-09-11 15:17 | Internal Medicine Prog Note ---
Internal Medicine Subjective - Subjective Service Date: 09/11/16 Patient seen and examined:: with staff Patient is:: awake Per staff patient is:: no adverse event Internal Medicine Objective - Results Result Diagrams: 09/11/16 07:40 09/11/16 07:40 Recent Labs: Laboratory Last Values WBC 12.5 Th/cmm (4.8-10.8) H D 09/11/16 07:40 RBC 4.87 Mil/cmm (3.80-5.20) 09/11/16 07:40 Hgb 13.5 gm/dL (11.7-16.1) 09/11/16 07:40 Hct 41.8 % (35.0-45.0) 09/11/16 07:40 MCV 85.7 fl (81-100) 09/11/16 07:40 MCH 27.8 pg (27.0-31.0) 09/11/16 07:40 MCHC Differential 32.4 pg (28.0-36.0) 09/11/16 07:40 RDW 13.1 % (11.5-20.0) 09/11/16 07:40 Plt Count 396 Th/cmm (150-400) 09/11/16 07:40 MPV 7.6 fl 09/11/16 07:40 Neutrophils % 77.1 % (40.0-80.0) 09/11/16 07:40 Band Neutrophils % 3 % (0-10) 09/10/16 07:20 Lymphocytes % 9.0 % (20.0-50.0) L 09/11/16 07:40 Monocytes % 13.5 % (2.0-10.0) H 09/11/16 07:40 Eosinophils % 0.2 % (0.0-5.0) 09/11/16 07:40 Basophils % 0.2 % (0.0-2.0) 09/11/16 07:40 Neutrophils (Manual) 60 % (40-80) 09/10/16 07:20 Lymphocytes 21 % (20-50) 09/10/16 07:20 Monocytes 16 % (2-10) H 09/10/16 07:20 Platelet Estimate ADEQUATE (NORMAL) 09/10/16 07:20 Platelet Morphology NORMAL (NORMAL) 09/10/16 07:20 RBC Morph Micro Appear NORMAL (NORMAL) 09/10/16 07:20 Specimen Source Arterial 09/09/16 08:34 Sample Site Right Radial 09/09/16 08:34 pH 7.38 (7.35-7.45) 09/09/16 08:34 pCO2 52.0 mmHg (35.0-45.0) H 09/09/16 08:34 pO2 192.0 mmHg (80.0-100.0) H 09/09/16 08:34 HCO3 30.8 mEq/L (20.0-26.0) H 09/09/16 08:34 Base Excess 4.5 mEq/L (-3.0-3.0) H 09/09/16 08:34 O2 Saturation 100.0 % (92.0-100.0) 09/09/16 08:34 Gm Test Positive 09/09/16 08:34 Vent Rate NA 09/09/16 08:34 Inspired O2 40 09/09/16 08:34 Tidal Volume NA 09/09/16 08:34 PEEP NA 09/09/16 08:34 Pressure (ins/psv/peep) NA 09/09/16 08:34 Critical Value SHARRI 09/09/16 08:34 Sodium 138 mEq/L (136-145) 09/11/16 07:40 Potassium 3.1 mEq/L (3.5-5.1) L 09/11/16 07:40 Chloride 105 mEq/L (98-107) 09/11/16 07:40 Carbon Dioxide 32.1 mEq/L (21.0-31.0) H 09/11/16 07:40 Anion Gap 4.0 (7.0-16.0) L 09/11/16 07:40 BUN 29 mg/dL (7-25) H 09/11/16 07:40 Creatinine 0.7 mg/dL (0.6-1.2) 09/11/16 07:40 Est GFR ( Amer) TNP 09/11/16 07:40 Est GFR (Non-Af Amer) TNP 09/11/16 07:40 BUN/Creatinine Ratio 41.4 09/11/16 07:40 Glucose 123 mg/dL (70-105) H 09/11/16 07:40 Whole Bld Lactic Acid 1.69 mmol/L (0.60-1.99) 09/09/16 08:30 Calcium 9.1 mg/dL (8.6-10.3) 09/11/16 07:40 Total Bilirubin 0.3 mg/dL (0.3-1.0) 09/09/16 08:30 AST 29 U/L (13-39) 09/09/16 08:30 ALT 20 U/L (7-52) 09/09/16 08:30 Alkaline Phosphatase 129 U/L (34-104) H 09/09/16 08:30 Troponin I 1.19 ng/mL (0.01-0.05) H* D 09/11/16 07:40 B-Natriuretic Peptide 999.0 pg/mL (5.0-100.0) H 09/11/16 07:40 Total Protein 7.6 gm/dL (6.0-8.3) 09/09/16 08:30 Albumin 3.9 gm/dL (3.7-5.3) 09/09/16 08:30 Globulin 3.7 gm/dL 09/09/16 08:30 Albumin/Globulin Ratio 1.1 (1.0-1.8) 09/09/16 08:30 Urine Source CATH 09/09/16 09:15 Urine Color YELLOW 09/09/16 09:15 Urine Clarity SL. CLOUDY (CLEAR) 09/09/16 09:15 Urine pH 7.5 09/09/16 09:15 Ur Specific [place] 1.025 (1.005-1.030) 09/09/16 09:15 Urine Protein 30 mg/dL (NEGATIVE) H 09/09/16 09:15 Urine Glucose (UA) NEGATIVE mg/dL (NEGATIVE) 09/09/16 09:15 Urine Ketones NEGATIVE mg/dL (NEGATIVE) 09/09/16 09:15 Urine Blood NEGATIVE (NEGATIVE) 09/09/16 09:15 Urine Nitrate NEGATIVE (NEGATIVE) 09/09/16 09:15 Urine Bilirubin NEGATIVE (NEGATIVE) 09/09/16 09:15 Urine Urobilinogen 0.2 E.U./dL (0.2 - 1.0) 09/09/16 09:15 Ur Leukocyte Esterase TRACE (NEGATIVE) H 09/09/16 09:15 Urine RBC 0-2 /hpf (0-5) 09/09/16 09:15 Urine WBC 6-10 /hpf (0-5) H 09/09/16 09:15 Ur Epithelial Cells MODERATE /lpf (FEW) 09/09/16 09:15 Urine Bacteria OCCASIONAL /hpf (NONE SEEN) 09/09/16 09:15 Urine Yeast FEW /hpf (NONE SEEN) H 09/09/16 09:15 - Physical Exam Vitals and I&O: Vital Signs Temp 97.7 F 09/11/16 12:00 Pulse 97 09/11/16 12:00 Resp 20 09/11/16 12:00 BP 132/78 09/11/16 12:00 Pulse Ox 99 09/11/16 12:00 Intake & Output 09/10/16 09/11/16 09/11/16 18:59 06:59 18:59 Intake Total 50 150 150 Output Total 250 Balance 50 150 -100 Intake: Intake, IV Amount 50 50 50 Cefepime 1 gm In Sodium 50 50 50 Chloride 0.9% 50 ml @ 100 mls/hr IV Q12HR [facility] Rx#: [id number] Oral 100 100 Output: Urine 250 Other: # Bowel Movements 0 Active Medications: Current Medications Acetaminophen (Tylenol) 650 mg PO Q4HR PRN PRN Reason: PAIN OR FEVER >100.1 R Stop: 11/08/16 10:24 Last Admin: 09/10/16 22:12 Dose: 650 mg Acetaminophen (Tylenol) 650 mg PO Q4HR PRN PRN Reason: Pain or Fever >101 Stop: 11/08/16 12:24 Al Hydrox/Mg Hydrox/Simethicone (Maalox) 30 ml PO Q6H PRN PRN Reason: GI DISTRESS Stop: 11/08/16 10:24 Albuterol Sulfate (Albuterol 2.5mg/3ml Neb Ud) 2.5 mg HHN QIDRT [facility] Stop: 11/08/16 14:59 Last Admin: 09/11/16 10:43 Dose: 2.5 mg Alendronate Sodium (Fosamax) 70 mg PO QSAT@0630 [facility] Stop: 11/13/16 06:29 Amlodipine Besylate (Norvasc) 10 mg PO QAM [facility] Stop: 11/09/16 08:59 Last Admin: 09/11/16 09:05 Dose: 10 mg Aspirin (Aspirin Chewable) 81 mg PO DAILY [facility] Stop: 11/09/16 08:59 Last Admin: 09/11/16 09:03 Dose: 81 mg Atenolol (Tenormin) 50 mg PO BID [facility] Stop: 11/08/16 16:59 Last Admin: 09/11/16 09:04 Dose: 50 mg Bisacodyl (Dulcolax 10 Mg Supp) 10 mg RC DAILY PRN PRN Reason: if MOM not effective Stop: 11/08/16 10:24 Calamine/Phenol (Calmoseptine) 1 appl TP Q4H PRN PRN Reason: INCONTINENCE Stop: 11/08/16 10:24 Calcium/Vitamin D (Oscal W/Vitamin D) 1 tab PO BID [facility] Stop: 11/08/16 16:59 Last Admin: 09/11/16 09:05 Dose: 1 tab Carbamazepine (Tegretol) 200 mg PO BID [facility] PRN Reason: Protocol Stop: 11/08/16 16:59 Last Admin: 09/11/16 09:03 Dose: 200 mg Cholecalciferol (Vitamin D3) 1,000 iu PO DAILY [facility] Stop: 11/09/16 08:59 Last Admin: 09/11/16 09:04 Dose: 1,000 iu Enalapril Maleate (Vasotec) 20 mg PO BID [facility] Stop: 11/08/16 16:59 Last Admin: 09/11/16 09:04 Dose: 20 mg Enoxaparin Sodium (Lovenox) 70 mg SUBQ Q12HR [facility] PRN Reason: Protocol Stop: 11/09/16 10:59 Last Admin: 09/11/16 09:02 Dose: 70 mg Furosemide (Lasix) 40 mg IVP BID [facility] Stop: 11/10/16 16:59 Guaifenesin (Robitussin) 100 mg PO Q4H PRN PRN Reason: Cough or Congestion Stop: 11/08/16 12:24 Last Admin: 09/11/16 01:12 Dose: 100 mg Cefepime HCl 1 gm/ Sodium (Chloride) 50 mls @ 100 mls/hr IV Q12HR [facility] Stop: 11/08/16 10:59 Last Infusion: 09/11/16 13:38 Dose: Infused Ipratropium [place] (Atrovent Neb 0.5mg/2.5ml) 0.5 mg HHN QIDRT [facility] Stop: 11/08/16 14:59 Last Admin: 09/11/16 10:43 Dose: 0.5 mg Lorazepam (Ativan) 0.5 mg PO Q6HR PRN; Protocol PRN Reason: Agitation Stop: 11/09/16 22:56 Last Admin: 09/11/16 04:27 Dose: 0.5 mg Magnesium Hydroxide (Milk Of Magnesia) 30 ml PO DAILY PRN PRN Reason: CONSTIPATION Stop: 11/08/16 10:24 Meclizine HCl (Antivert) 25 mg PO DAILY PRN PRN Reason: Nausea / Vomiting Stop: 11/08/16 10:24 Methylprednisolone Sodium Succinate (Solu-Medrol) 20 mg IVP Q12HR [facility] Stop: 11/10/16 15:01 Ondansetron HCl (Zofran) 4 mg IV Q8H PRN PRN Reason: Nausea / Vomiting Stop: 11/08/16 12:24 Potassium Chloride (Klor-Con) 20 meq PO BID [facility] Stop: 11/10/16 16:59 Sodium Chloride (Saline Flush) 10 ml IV QSHIFT [facility] Stop: 11/08/16 19:59 Last Admin: 09/11/16 09:26 Dose: 10 ml Sodium Phosphate (Fleet Enema) 135 ml RC DAILY PRN PRN Reason: if dulcolax not effective Stop: 11/08/16 10:24 General: alert HEENT: NC/AT, PERRLA Neck: Supple Lungs: CTAB Cardiovascular: RRR, Normal S1, Normal S2, without murmur Abdomen: soft non-tender, non-distended Extremities: clear - Procedures Procedures: Procedures Procedure Code Date D & C NEC 69.09 01/24/98 DILATION AND CURETTAGE 30364 01/24/98 Internal Medicine Assmt/Plan - Assessment Assessment: PNEUMONIA CONGESTIVE HEART FAILURE EXACERBATION HTN DEMENTIA HYPONATREMIA - Plan Plan: dc planning in am continue ivabx inhalation tx/supplemental oxygen cpm
[2016-09-11] MEDS ORDERED: Potassium Chloride 20 mEq ER Tab PO ONE (15:19)
[2016-09-11] MEDS: methylPREDNISolone SS 40 mg Vial IVP SCH (20:39)
[2016-09-12] MEDS: Albuterol Nebulizer 2.5mg/3mL HHN SCH ×4 (07:07→18:48)
[2016-09-12] MEDS: Ipratropium Neb 0.5 mg/2.5 mL UD HHN SCH ×4 (07:07→18:48)
[2016-09-12 07:10] LABS: % EOSINOPHILS 0.1 % (0.0-5.0); % LYMPHOCYTES 21.9 % (20.0-50.0); % MONOCYTES 8.9 % (2.0-10.0); % NEUTROPHILS 69.1 % (40.0-80.0); HEMATOCRIT 39.4 % (35.0-45.0); HEMOGLOBIN 12.9 gm/dL (11.7-16.1); MEAN CELL VOLUME 85.6 fl (81-100); MEAN CORPUSCULAR HGB CONC 32.7 pg (28.0-36.0); MEAN PLATELET VOLUME 7.4 fl; NEUTROPHILE ABSOLUTE 6.2 Th/cmm (1.8-8.0); PLATELET COUNT 342 Th/cmm (150-400); RED CELL DISTRIBUTION WIDTH 13.2 % (11.5-20.0)
[2016-09-12 07:12] LABS: WHITE BLOOD COUNT 8.9 Th/cmm (4.8-10.8)
[2016-09-12 07:28] LABS: ANION GAP 7.2 (7.0-16.0); BUN - UREA NITROGEN 34 mg/dL (7-25); BUN/CREATININE RATIO 56.7; CALCIUM SERUM 9.4 mg/dL (8.6-10.3); CARBON DIOXIDE 35.9 mEq/L (21.0-31.0); CHLORIDE 104 mEq/L (98-107); CREATININE - SERUM 0.6 mg/dL (0.6-1.2); GLUCOSE 118 mg/dL (70-105); POTASSIUM SERUM 4.1 mEq/L (3.5-5.1); SODIUM SERUM 143 mEq/L (136-145)
[2016-09-12] MEDS: Enoxaparin 80 mg/0.8 mL 0.8mL Syr SUBQ SCH ×2 (08:52→22:07)
[2016-09-12] MEDS: methylPREDNISolone SS 40 mg Vial IVP SCH ×2 (08:54→22:07)
[2016-09-12] MEDS: Potassium Chloride 20 mEq ER Tab PO SCH ×2 (08:55→16:54)
[2016-09-12] MEDS: Multivitamin w/ Minerals Tab PO SCH (08:55)
[2016-09-12] MEDS: Calcium Carb/Vit D 500 mg/200 U Tab PO SCH ×2 (08:55→16:54)
[2016-09-12] MEDS: Aspirin 81mg Chewable Tab PO SCH (08:55)
[2016-09-12] MEDS: Cefepime 1 GM in Sodium Chloride 0.9% 50 ML IV SCH ×2 (08:57→22:06)
--- NOTE | 2016-09-12 12:25 | Internal Medicine Prog Note ---
Internal Medicine Subjective - Subjective Service Date: 09/12/16 Patient seen and examined:: with staff Patient is:: awake Per staff patient is:: no adverse event Internal Medicine Objective - Results Result Diagrams: 09/12/16 07:00 09/12/16 07:00 Recent Labs: Laboratory Last Values WBC 8.9 Th/cmm (4.8-10.8) D 09/12/16 07:00 RBC 4.60 Mil/cmm (3.80-5.20) 09/12/16 07:00 Hgb 12.9 gm/dL (11.7-16.1) 09/12/16 07:00 Hct 39.4 % (35.0-45.0) 09/12/16 07:00 MCV 85.6 fl (81-100) 09/12/16 07:00 MCH 28.0 pg (27.0-31.0) 09/12/16 07:00 MCHC Differential 32.7 pg (28.0-36.0) 09/12/16 07:00 RDW 13.2 % (11.5-20.0) 09/12/16 07:00 Plt Count 342 Th/cmm (150-400) 09/12/16 07:00 MPV 7.4 fl 09/12/16 07:00 Neutrophils % 69.1 % (40.0-80.0) 09/12/16 07:00 Band Neutrophils % 3 % (0-10) 09/10/16 07:20 Lymphocytes % 21.9 % (20.0-50.0) 09/12/16 07:00 Monocytes % 8.9 % (2.0-10.0) 09/12/16 07:00 Eosinophils % 0.1 % (0.0-5.0) 09/12/16 07:00 Basophils % 0.0 % (0.0-2.0) 09/12/16 07:00 Neutrophils (Manual) 60 % (40-80) 09/10/16 07:20 Lymphocytes 21 % (20-50) 09/10/16 07:20 Monocytes 16 % (2-10) H 09/10/16 07:20 Platelet Estimate ADEQUATE (NORMAL) 09/10/16 07:20 Platelet Morphology NORMAL (NORMAL) 09/10/16 07:20 RBC Morph Micro Appear NORMAL (NORMAL) 09/10/16 07:20 Specimen Source Arterial 09/09/16 08:34 Sample Site Right Radial 09/09/16 08:34 pH 7.38 (7.35-7.45) 09/09/16 08:34 pCO2 52.0 mmHg (35.0-45.0) H 09/09/16 08:34 pO2 192.0 mmHg (80.0-100.0) H 09/09/16 08:34 HCO3 30.8 mEq/L (20.0-26.0) H 09/09/16 08:34 Base Excess 4.5 mEq/L (-3.0-3.0) H 09/09/16 08:34 O2 Saturation 100.0 % (92.0-100.0) 09/09/16 08:34 Gm Test Positive 09/09/16 08:34 Vent Rate NA 09/09/16 08:34 Inspired O2 40 09/09/16 08:34 Tidal Volume NA 09/09/16 08:34 PEEP NA 09/09/16 08:34 Pressure (ins/psv/peep) NA 09/09/16 08:34 Critical Value LADY 09/09/16 08:34 Sodium 143 mEq/L (136-145) 09/12/16 07:00 Potassium 4.1 mEq/L (3.5-5.1) 09/12/16 07:00 Chloride 104 mEq/L (98-107) 09/12/16 07:00 Carbon Dioxide 35.9 mEq/L (21.0-31.0) H 09/12/16 07:00 Anion Gap 7.2 (7.0-16.0) 09/12/16 07:00 BUN 34 mg/dL (7-25) H 09/12/16 07:00 Creatinine 0.6 mg/dL (0.6-1.2) 09/12/16 07:00 Est GFR ( Amer) TNP 09/12/16 07:00 Est GFR (Non-Af Amer) TNP 09/12/16 07:00 BUN/Creatinine Ratio 56.7 09/12/16 07:00 Glucose 118 mg/dL (70-105) H 09/12/16 07:00 Whole Bld Lactic Acid 1.69 mmol/L (0.60-1.99) 09/09/16 08:30 Calcium 9.4 mg/dL (8.6-10.3) 09/12/16 07:00 Total Bilirubin 0.3 mg/dL (0.3-1.0) 09/09/16 08:30 AST 29 U/L (13-39) 09/09/16 08:30 ALT 20 U/L (7-52) 09/09/16 08:30 Alkaline Phosphatase 129 U/L (34-104) H 09/09/16 08:30 Troponin I 1.19 ng/mL (0.01-0.05) H* D 09/11/16 07:40 B-Natriuretic Peptide 999.0 pg/mL (5.0-100.0) H 09/11/16 07:40 Total Protein 7.6 gm/dL (6.0-8.3) 09/09/16 08:30 Albumin 3.9 gm/dL (3.7-5.3) 09/09/16 08:30 Globulin 3.7 gm/dL 09/09/16 08:30 Albumin/Globulin Ratio 1.1 (1.0-1.8) 09/09/16 08:30 Urine Source CATH 09/09/16 09:15 Urine Color YELLOW 09/09/16 09:15 Urine Clarity SL. CLOUDY (CLEAR) 09/09/16 09:15 Urine pH 7.5 09/09/16 09:15 Ur Specific [place] 1.025 (1.005-1.030) 09/09/16 09:15 Urine Protein 30 mg/dL (NEGATIVE) H 09/09/16 09:15 Urine Glucose (UA) NEGATIVE mg/dL (NEGATIVE) 09/09/16 09:15 Urine Ketones NEGATIVE mg/dL (NEGATIVE) 09/09/16 09:15 Urine Blood NEGATIVE (NEGATIVE) 09/09/16 09:15 Urine Nitrate NEGATIVE (NEGATIVE) 09/09/16 09:15 Urine Bilirubin NEGATIVE (NEGATIVE) 09/09/16 09:15 Urine Urobilinogen 0.2 E.U./dL (0.2 - 1.0) 09/09/16 09:15 Ur Leukocyte Esterase TRACE (NEGATIVE) H 09/09/16 09:15 Urine RBC 0-2 /hpf (0-5) 09/09/16 09:15 Urine WBC 6-10 /hpf (0-5) H 09/09/16 09:15 Ur Epithelial Cells MODERATE /lpf (FEW) 09/09/16 09:15 Urine Bacteria OCCASIONAL /hpf (NONE SEEN) 09/09/16 09:15 Urine Yeast FEW /hpf (NONE SEEN) H 09/09/16 09:15 - Physical Exam Vitals and I&O: Vital Signs Temp 97.0 F 09/12/16 08:00 Pulse 88 09/12/16 11:07 Resp 20 09/12/16 11:07 BP 109/71 09/12/16 10:24 Pulse Ox 99 09/12/16 11:07 Intake & Output 09/11/16 09/12/16 09/12/16 18:59 06:59 18:59 Intake Total 1000 170 Output Total 750 Balance 250 170 Intake: Intake, IV Amount 50 50 Cefepime 1 gm In Sodium 50 50 Chloride 0.9% 50 ml @ 100 mls/hr IV Q12HR [facility] Rx#: [id number] Oral 950 120 Output: Urine 750 Other: # Voids 350 Active Medications: Current Medications Acetaminophen (Tylenol) 650 mg PO Q4HR PRN PRN Reason: PAIN OR FEVER >100.1 R Stop: 11/08/16 10:24 Last Admin: 09/10/16 22:12 Dose: 650 mg Acetaminophen (Tylenol) 650 mg PO Q4HR PRN PRN Reason: Pain or Fever >101 Stop: 11/08/16 12:24 Al Hydrox/Mg Hydrox/Simethicone (Maalox) 30 ml PO Q6H PRN PRN Reason: GI DISTRESS Stop: 11/08/16 10:24 Albuterol Sulfate (Albuterol 2.5mg/3ml Neb Ud) 2.5 mg HHN QIDRT [facility] Stop: 11/08/16 14:59 Last Admin: 09/12/16 11:05 Dose: 2.5 mg Alendronate Sodium (Fosamax) 70 mg PO QSAT@0630 [facility] Stop: 11/13/16 06:29 Amlodipine Besylate (Norvasc) 10 mg PO QAM [facility] Stop: 11/09/16 08:59 Last Admin: 09/12/16 08:53 Dose: 10 mg Aspirin (Aspirin Chewable) 81 mg PO DAILY [facility] Stop: 11/09/16 08:59 Last Admin: 09/12/16 08:55 Dose: 81 mg Atenolol (Tenormin) 50 mg PO BID [facility] Stop: 11/08/16 16:59 Last Admin: 09/12/16 08:56 Dose: Not Given Bisacodyl (Dulcolax 10 Mg Supp) 10 mg RC DAILY PRN PRN Reason: if MOM not effective Stop: 11/08/16 10:24 Calamine/Phenol (Calmoseptine) 1 appl TP Q4H PRN PRN Reason: INCONTINENCE Stop: 11/08/16 10:24 Calcium/Vitamin D (Oscal W/Vitamin D) 1 tab PO BID [facility] Stop: 11/08/16 16:59 Last Admin: 09/12/16 08:55 Dose: 1 tab Carbamazepine (Tegretol) 200 mg PO BID [facility] PRN Reason: Protocol Stop: 11/08/16 16:59 Last Admin: 09/12/16 08:54 Dose: 200 mg Cholecalciferol (Vitamin D3) 1,000 iu PO DAILY [facility] Stop: 11/09/16 08:59 Last Admin: 09/12/16 08:54 Dose: 1,000 iu Enalapril Maleate (Vasotec) 20 mg PO BID [facility] Stop: 11/08/16 16:59 Last Admin: 09/12/16 10:24 Dose: Not Given Enoxaparin Sodium (Lovenox) 70 mg SUBQ Q12HR [facility] PRN Reason: Protocol Stop: 11/09/16 10:59 Last Admin: 09/12/16 08:52 Dose: 70 mg Furosemide (Lasix) 40 mg IVP BID [facility] Stop: 11/10/16 16:59 Last Admin: 09/12/16 08:54 Dose: 40 mg Furosemide (Lasix) 40 mg IVP BID [facility] Stop: 11/10/16 16:59 Guaifenesin (Robitussin) 100 mg PO Q4H PRN PRN Reason: Cough or Congestion Stop: 11/08/16 12:24 Last Admin: 09/11/16 01:12 Dose: 100 mg Cefepime HCl 1 gm/ Sodium (Chloride) 50 mls @ 100 mls/hr IV Q12HR [facility] Stop: 11/08/16 10:59 Last Admin: 09/12/16 08:57 Dose: 100 mls/hr Ipratropium Ethel (Atrovent Neb 0.5mg/2.5ml) 0.5 mg HHN QIDRT [facility] Stop: 11/08/16 14:59 Last Admin: 09/12/16 11:05 Dose: 0.5 mg Lorazepam (Ativan) 0.5 mg PO Q6HR PRN; Protocol PRN Reason: Agitation Stop: 11/09/16 22:56 Last Admin: 09/11/16 04:27 Dose: 0.5 mg Magnesium Hydroxide (Milk Of Magnesia) 30 ml PO DAILY PRN PRN Reason: CONSTIPATION Stop: 11/08/16 10:24 Meclizine HCl (Antivert) 25 mg PO DAILY PRN PRN Reason: Nausea / Vomiting Stop: 11/08/16 10:24 Methylprednisolone Sodium Succinate (Solu-Medrol) 20 mg IVP Q12HR [facility] Stop: 11/10/16 15:59 Last Admin: 09/12/16 08:54 Dose: 20 mg Ondansetron HCl (Zofran) 4 mg IV Q8H PRN PRN Reason: Nausea / Vomiting Stop: 11/08/16 12:24 Potassium Chloride (Klor-Con) 20 meq PO BID [facility] Stop: 11/10/16 16:59 Last Admin: 09/12/16 08:55 Dose: 20 meq Sodium Chloride (Saline Flush) 10 ml IV QSHIFT [facility] Stop: 11/08/16 19:59 Last Admin: 09/12/16 08:56 Dose: 10 ml Sodium Phosphate (Fleet Enema) 135 ml RC DAILY PRN PRN Reason: if dulcolax not effective Stop: 11/08/16 10:24 General: alert HEENT: NC/AT, PERRLA Neck: Supple Lungs: congested, ronchi Cardiovascular: Normal S1, Normal S2, without murmur Abdomen: soft non-tender, non-distended, positive bowel sound Neurological: no change - Procedures Procedures: Procedures Procedure Code Date D & C NEC 69.09 01/24/98 DILATION AND CURETTAGE 74319 01/24/98 Internal Medicine Assmt/Plan - Assessment Assessment: PNEUMONIA CONGESTIVE HEART FAILURE EXACERBATION HTN DEMENTIA HYPONATREMIA - Plan Plan: tele monitoring continue ivabx inhalation tx/supplemental oxygen cpm
[2016-09-12 17:23] LABS: INR 1.1 (0.5-1.4); PROTHROMBIN TIME (TEST) 11.5 SECONDS (9.5-11.5)
[2016-09-13] MEDS: Albuterol Nebulizer 2.5mg/3mL HHN SCH ×2 (07:17→10:53)
[2016-09-13] MEDS: Ipratropium Neb 0.5 mg/2.5 mL UD HHN SCH ×2 (07:18→10:53)
[2016-09-13 07:30] LABS: INR 0.99 (0.5-1.4); PROTHROMBIN TIME (TEST) 10.3 SECONDS (9.5-11.5)
[2016-09-13 07:35] LABS: ANION GAP 7.6 (7.0-16.0); BUN - UREA NITROGEN 38 mg/dL (7-25); BUN/CREATININE RATIO 54.3; CALCIUM SERUM 9.5 mg/dL (8.6-10.3); CARBON DIOXIDE 37.9 mEq/L (21.0-31.0); CHLORIDE 103 mEq/L (98-107); CREATININE - SERUM 0.7 mg/dL (0.6-1.2); GLUCOSE 114 mg/dL (70-105); POTASSIUM SERUM 4.5 mEq/L (3.5-5.1); SODIUM SERUM 144 mEq/L (136-145)
[2016-09-13] MEDS: Cefepime 1 GM in Sodium Chloride 0.9% 50 ML IV SCH (08:53)
[2016-09-13] MEDS: methylPREDNISolone SS 40 mg Vial IVP SCH (08:54)
[2016-09-13] MEDS: Enoxaparin 80 mg/0.8 mL 0.8mL Syr SUBQ SCH (08:55)
[2016-09-13] MEDS: Aspirin 81mg Chewable Tab PO SCH (08:56)
[2016-09-13] MEDS: Potassium Chloride 20 mEq ER Tab PO SCH ×2 (08:56→16:42)
[2016-09-13] MEDS: Multivitamin w/ Minerals Tab PO SCH (08:56)
[2016-09-13] MEDS: Calcium Carb/Vit D 500 mg/200 U Tab PO SCH ×2 (08:56→16:42)
--- NOTE | 2016-09-13 13:33 | Internal Medicine Prog Note ---
Internal Medicine Subjective - Subjective Service Date: 09/13/16 (DC SUMMARY 656189) Internal Medicine Objective - Results Result Diagrams: 09/12/16 07:00 09/13/16 06:00 Recent Labs: Laboratory Last Values WBC 8.9 Th/cmm (4.8-10.8) D 09/12/16 07:00 RBC 4.60 Mil/cmm (3.80-5.20) 09/12/16 07:00 Hgb 12.9 gm/dL (11.7-16.1) 09/12/16 07:00 Hct 39.4 % (35.0-45.0) 09/12/16 07:00 MCV 85.6 fl (81-100) 09/12/16 07:00 MCH 28.0 pg (27.0-31.0) 09/12/16 07:00 MCHC Differential 32.7 pg (28.0-36.0) 09/12/16 07:00 RDW 13.2 % (11.5-20.0) 09/12/16 07:00 Plt Count 342 Th/cmm (150-400) 09/12/16 07:00 MPV 7.4 fl 09/12/16 07:00 Neutrophils % 69.1 % (40.0-80.0) 09/12/16 07:00 Band Neutrophils % 3 % (0-10) 09/10/16 07:20 Lymphocytes % 21.9 % (20.0-50.0) 09/12/16 07:00 Monocytes % 8.9 % (2.0-10.0) 09/12/16 07:00 Eosinophils % 0.1 % (0.0-5.0) 09/12/16 07:00 Basophils % 0.0 % (0.0-2.0) 09/12/16 07:00 Neutrophils (Manual) 60 % (40-80) 09/10/16 07:20 Lymphocytes 21 % (20-50) 09/10/16 07:20 Monocytes 16 % (2-10) H 09/10/16 07:20 Platelet Estimate ADEQUATE (NORMAL) 09/10/16 07:20 Platelet Morphology NORMAL (NORMAL) 09/10/16 07:20 RBC Morph Micro Appear NORMAL (NORMAL) 09/10/16 07:20 PT 10.3 SECONDS (9.5-11.5) 09/13/16 06:00 INR 0.99 (0.5-1.4) 09/13/16 06:00 Specimen Source Arterial 09/09/16 08:34 Sample Site Right Radial 09/09/16 08:34 pH 7.38 (7.35-7.45) 09/09/16 08:34 pCO2 52.0 mmHg (35.0-45.0) H 09/09/16 08:34 pO2 192.0 mmHg (80.0-100.0) H 09/09/16 08:34 HCO3 30.8 mEq/L (20.0-26.0) H 09/09/16 08:34 Base Excess 4.5 mEq/L (-3.0-3.0) H 09/09/16 08:34 O2 Saturation 100.0 % (92.0-100.0) 09/09/16 08:34 Gm Test Positive 09/09/16 08:34 Vent Rate NA 09/09/16 08:34 Inspired O2 40 09/09/16 08:34 Tidal Volume NA 09/09/16 08:34 PEEP NA 09/09/16 08:34 Pressure (ins/psv/peep) NA 09/09/16 08:34 Critical Value IZHAN 09/09/16 08:34 Sodium 144 mEq/L (136-145) 09/13/16 06:00 Potassium 4.5 mEq/L (3.5-5.1) 09/13/16 06:00 Chloride 103 mEq/L (98-107) 09/13/16 06:00 Carbon Dioxide 37.9 mEq/L (21.0-31.0) H 09/13/16 06:00 Anion Gap 7.6 (7.0-16.0) 09/13/16 06:00 BUN 38 mg/dL (7-25) H 09/13/16 06:00 Creatinine 0.7 mg/dL (0.6-1.2) 09/13/16 06:00 Est GFR ( Amer) TNP 09/13/16 06:00 Est GFR (Non-Af Amer) TNP 09/13/16 06:00 BUN/Creatinine Ratio 54.3 09/13/16 06:00 Glucose 114 mg/dL (70-105) H 09/13/16 06:00 Whole Bld Lactic Acid 1.69 mmol/L (0.60-1.99) 09/09/16 08:30 Calcium 9.5 mg/dL (8.6-10.3) 09/13/16 06:00 Total Bilirubin 0.3 mg/dL (0.3-1.0) 09/09/16 08:30 AST 29 U/L (13-39) 09/09/16 08:30 ALT 20 U/L (7-52) 09/09/16 08:30 Alkaline Phosphatase 129 U/L (34-104) H 09/09/16 08:30 Troponin I 1.19 ng/mL (0.01-0.05) H* D 09/11/16 07:40 B-Natriuretic Peptide 369.0 pg/mL (5.0-100.0) H 09/13/16 06:00 Total Protein 7.6 gm/dL (6.0-8.3) 09/09/16 08:30 Albumin 3.9 gm/dL (3.7-5.3) 09/09/16 08:30 Globulin 3.7 gm/dL 09/09/16 08:30 Albumin/Globulin Ratio 1.1 (1.0-1.8) 09/09/16 08:30 Urine Source CATH 09/09/16 09:15 Urine Color YELLOW 09/09/16 09:15 Urine Clarity SL. CLOUDY (CLEAR) 09/09/16 09:15 Urine pH 7.5 09/09/16 09:15 Ur Specific [place] 1.025 (1.005-1.030) 09/09/16 09:15 Urine Protein 30 mg/dL (NEGATIVE) H 09/09/16 09:15 Urine Glucose (UA) NEGATIVE mg/dL (NEGATIVE) 09/09/16 09:15 Urine Ketones NEGATIVE mg/dL (NEGATIVE) 09/09/16 09:15 Urine Blood NEGATIVE (NEGATIVE) 09/09/16 09:15 Urine Nitrate NEGATIVE (NEGATIVE) 09/09/16 09:15 Urine Bilirubin NEGATIVE (NEGATIVE) 09/09/16 09:15 Urine Urobilinogen 0.2 E.U./dL (0.2 - 1.0) 09/09/16 09:15 Ur Leukocyte Esterase TRACE (NEGATIVE) H 09/09/16 09:15 Urine RBC 0-2 /hpf (0-5) 09/09/16 09:15 Urine WBC 6-10 /hpf (0-5) H 09/09/16 09:15 Ur Epithelial Cells MODERATE /lpf (FEW) 09/09/16 09:15 Urine Bacteria OCCASIONAL /hpf (NONE SEEN) 09/09/16 09:15 Urine Yeast FEW /hpf (NONE SEEN) H 09/09/16 09:15 - Physical Exam Vitals and I&O: Vital Signs Temp 98.2 F 09/13/16 08:00 Pulse 72 09/13/16 08:57 Resp 20 09/13/16 08:00 BP 93/73 09/13/16 08:57 Pulse Ox 96 09/13/16 08:00 Intake & Output 09/12/16 09/13/16 09/13/16 18:59 06:59 18:59 Intake Total 50 50 Balance 50 50 Intake: Intake, IV Amount 50 50 Cefepime 1 gm In Sodium 50 50 Chloride 0.9% 50 ml @ 100 mls/hr IV Q12HR [facility] Rx#: [id number] Active Medications: Current Medications Acetaminophen (Tylenol) 650 mg PO Q4HR PRN PRN Reason: PAIN OR FEVER >100.1 R Stop: 11/08/16 10:24 Last Admin: 09/10/16 22:12 Dose: 650 mg Al Hydrox/Mg Hydrox/Simethicone (Maalox) 30 ml PO Q6H PRN PRN Reason: GI DISTRESS Stop: 11/08/16 10:24 Alendronate Sodium (Fosamax) 70 mg PO QSAT@0630 [facility] Stop: 11/13/16 06:29 Amlodipine Besylate (Norvasc) 10 mg PO QAM [facility] Stop: 11/09/16 08:59 Last Admin: 09/13/16 08:56 Dose: Not Given Aspirin (Aspirin Chewable) 81 mg PO DAILY [facility] Stop: 11/09/16 08:59 Last Admin: 09/13/16 08:56 Dose: Not Given Atenolol (Tenormin) 50 mg PO BID [facility] Stop: 11/08/16 16:59 Last Admin: 09/13/16 08:57 Dose: Not Given Bisacodyl (Dulcolax 10 Mg Supp) 10 mg RC DAILY PRN PRN Reason: if MOM not effective Stop: 11/08/16 10:24 Calamine/Phenol (Calmoseptine) 1 appl TP Q4H PRN PRN Reason: INCONTINENCE Stop: 11/08/16 10:24 Calcium/Vitamin D (Oscal W/Vitamin D) 1 tab PO BID [facility] Stop: 11/08/16 16:59 Last Admin: 09/13/16 08:56 Dose: Not Given Carbamazepine (Tegretol) 200 mg PO BID [facility] PRN Reason: Protocol Stop: 11/08/16 16:59 Last Admin: 09/13/16 08:56 Dose: Not Given Cholecalciferol (Vitamin D3) 1,000 iu PO DAILY [facility] Stop: 11/09/16 08:59 Last Admin: 09/13/16 08:56 Dose: 1,000 iu Enalapril Maleate (Vasotec) 20 mg PO BID [facility] Stop: 11/08/16 16:59 Last Admin: 09/13/16 08:57 Dose: Not Given Magnesium Hydroxide (Milk Of Magnesia) 30 ml PO DAILY PRN PRN Reason: CONSTIPATION Stop: 11/08/16 10:24 Meclizine HCl (Antivert) 25 mg PO DAILY PRN PRN Reason: Nausea / Vomiting Stop: 11/08/16 10:24 Potassium Chloride (Klor-Con) 20 meq PO BID [facility] Stop: 11/10/16 16:59 Last Admin: 09/13/16 08:56 Dose: Not Given Sodium Phosphate (Fleet Enema) 135 ml RC DAILY PRN PRN Reason: if dulcolax not effective Stop: 11/08/16 10:24 - Procedures Procedures: Procedures Procedure Code Date D & C NEC 69.09 01/24/98 DILATION AND CURETTAGE 66915 01/24/98 Internal Medicine Assmt/Plan - Assessment Assessment: PNEUMONIA CONGESTIVE HEART FAILURE EXACERBATION HTN DEMENTIA HYPONATREMIA
[2016-09-13] MEDS ORDERED: Furosemide 40 mg/4mL UDC PO SCH (17:00)
--- NOTE | 2016-09-14 00:36 | Discharge Summary ---
DICTATED FOR: Dr. Jitendra Foster. FINAL DIAGNOSES: Congestive heart failure exacerbation, possible pneumonia, elevated troponin, hyponatremia, hypertension, and dementia. HISTORY OF PRESENT ILLNESS: A 76-year-old female, a resident of [facility], who was brought to [facility] for a 1-day history of shortness of breath associated with respiratory distress and audible wheezes. This patient did not have any fevers or any chills at the residential. PHYSICAL EXAMINATION: GENERAL: The patient is well developed, well nourished, in no acute distress. VITAL SIGNS: Stable. HEENT: Head is normocephalic, atraumatic. NECK: Supple. No mass. LUNGS: Clear bilaterally. CARDIOVASCULAR: Regular rate and rhythm. ABDOMEN: Soft, nontender. HOSPITAL COURSE: During the hospital stay, the patient was admitted to the telemetry unit. The patient had a consultation with Dr. Robbin Henson due to the elevated troponin level. The patient had a chest x-ray done and the impression was no definite acute pulmonary processes. The patient had a 2D echocardiogram done and the impression is ejection fraction of 20%. The patient was later then stabilized and was stable for discharge. CONDITION UPON DISCHARGE: Fair. DISPOSITION: The patient is going back to [facility]. JOB# [id number]
== END 2016-09-13 19:34 | DRG 177 ==
LOC: ER 08:20 → TELE 09:50
PROVIDERS: ADMIT Internal Medicine; ATTEND Internal Medicine
DX: J69.0 Pneumonitis due to inhalation of food and vomit (principal); I50.23 Acute on chronic systolic (congestive) heart failure; I24.8 Other forms of acute ischemic heart disease; F03.90 Unspecified dementia, unspecified severity, without behavioral disturbance, psychotic disturbance, mood disturbance, and anxiety; I42.9 Cardiomyopathy, unspecified; E87.1 Hypo-osmolality and hyponatremia; G81.94 Hemiplegia, unspecified affecting left nondominant side; I11.0 Hypertensive heart disease with heart failure; J18.9 Pneumonia, unspecified organism; G40.909 Epilepsy, unspecified, not intractable, without status epilepticus; I10 Essential (primary) hypertension; I69.30 Unspecified sequelae of cerebral infarction
CPT/HCPCS: 36415-UA; 36600-90; 71010-TC; 80048-TC; 80053-TC; 81001-TC; 82803-TC; 83605; 83880-TC; 84484-TC; 85007-TC; 85025-TC; 85027-TC; 85610-TC; 90779; 93005; 94640; 94760; 96375; J0692; J1940; J2543; J2920; J2930; J3480; J7030; J7613; Z7502; Z7610